=== PATIENT | female | born 1965 | race Caucasian/White ===

== ENCOUNTER 2022-10-04 14:44 | Outpatient (CLI) | payer BC, SELFPAY ==
--- NOTE | 2022-10-04 15:00 | XR_ITS ---
WS: [id number] SCREENING DEXA SCAN [employer] CLINICAL INFORMATION: screening COMPARISON: None. FINDINGS: The L1-L4 bone mineral density measures 0.863 g/cm2. This corresponds to a T score score of -2.6 and Z score of -1.8. Left femoral neck bone mineral density measures 0.783 g/cm2. This corresponds to a T score of -1.8 an d Z score of -1.1. Right femoral neck bone mineral density measures 0.800 g/cm2. This corresponds to a T score -1.6of an d Z score of -1.0. Mean femoral neck bone mineral density measures 0.792 g/cm2. This corresponds to a T score of -1.7 an d Z score of -1.1. XR/XR DEXA axial skeleton* [id number] IMPRESSION: Osteoporosis lumbar spine at the lower end of the range. Osteopenia femoral nec ks. Patient's FRAX calculated 10 year probability for major osteoporotic fractu re is 9.3 % and osteoporotic hip fracture is 1.2%.
== END 2022-10-04 14:45 | disposition home or self-care (01) ==
LOC: RAD 14:48
PROVIDERS: Visit Provider Nurse Practitioner Family
DX: Z13.820 Encounter for screening for osteoporosis (principal); Z78.0 Asymptomatic menopausal state; M81.0 Age-related osteoporosis without current pathological fracture
CPT/HCPCS: 77080; 80053; 80061; 82306; 84443

== ENCOUNTER 2022-10-06 08:10 | Outpatient (CLI) | payer BC, SELFPAY ==
--- NOTE | 2022-10-06 08:17 | MM_ITS ---
WS: [id number] SCREENING DIGITAL BREAST TOMOSYNTHESIS MAMMOGRAM WITH CAD HISTORY: screening COMPARISON: None available. Bilateral CC and MLO with tomosynthesis and synthetic mammography submitted. Computer aided detection analyzed. Breast composition: There are scattered areas of fibroglandular density. Very subtle asymmetry in the central posterior LEFT breast needs further evaluation. This may be superimposed fibroglandular tiss ue. No prior studies for comparison. Benign LEFT breast arterial calcifications. MM/[place] [id number] IMPRESSION: BI-RADS: 0-Incomplete: Need additional imaging evaluation FOLLOW UP: Need Additional Imaging LEFT breast: Spot compression views (CC and MLO). True ML. Ultrasound to follow if abnormality persists.
== END 2022-10-06 08:11 | disposition home or self-care (01) ==
LOC: RAD 08:12
PROVIDERS: Visit Provider Nurse Practitioner Family
DX: Z12.31 Encounter for screening mammogram for malignant neoplasm of breast (principal)
CPT/HCPCS: 77063; 77067